=== PATIENT | female | born 1945 | race Caucasian/White ===

== ENCOUNTER 2019-08-27 17:57 | Inpatient (IN) | payer MEDICARE, BC ==
[2019-08-27] MEDS ORDERED: Sodium Chloride 0.9% 10 ML Syringe FLUSH PRN (18:21)
[2019-08-27] MEDS: Dextrose 5%-0.9% NaCl 1,000 ML IV SCH (19:50)
--- NOTE | 2019-08-27 19:53 | PCM.HP.2 ---
H&P History of Present Illness - General Date of Service: 08/27/19 Admit Problem/Dx: Admission Diagnosis/Problem Admission Diagnosis/Problem Diverticulitis Source of Information: Patient History Limitations: Reports: No Limitations - History of Present Illness Initial Comments - Free Text/Narative: Gisela is [id number] female who called yesterday stating she was having abdominal pain and having only minimal stool. She said she had an episode of abdominal pain several months ago and feels it happening again with recurrent diverticulitis. This was a self diagnosis. She took an enema last night with no relief in pain and no stool. She says she's lost over 10 pounds recently. When she eats she has increased pain. She also has a sense of bloating with pain mostly on the low left quadrant area. She stopped taking all medications. She had been on lisinopril as amlodipine. She is having trouble at with her who drinks alcohol. She feels that this lower. She has been a nurse in the past but retired. Duration of Symptoms: Reports: Day(s): - Related Data Allergies/Adverse Reactions: Allergies Allergy/AdvReac Type Severity Reaction Status Date / Time No Known Allergies Allergy Verified 03/07/16 09:23 Home Medications: Home Meds Aspirin [Low Dose Aspirin EC] 81 mg PO DAILY 02/19/13 [History] Citalopram Hydrobromide [Celexa] 20 mg PO DAILY 02/19/13 [History] amLODIPine [Norvasc] 5 mg PO DAILY 02/19/13 [History] lisinopriL [Prinivil] 40 mg PO DAILY 02/19/13 [History] Docusate Sodium 100 mg PO BID 03/03/16 [History] Doxycycline Hyclate 100 mg PO BID 03/03/16 [History] Past Medical History Cardiovascular History: Reports: Afib, Hypertension Respiratory History: Reports: Sleep Apnea Gastrointestinal History: Reports: Chronic Constipation, Chronic Diarrhea Genitourinary History: Reports: Urinary Incontinence [place] History: Reports: Dysfunctional Uterine Bleeding, Musculoskeletal History: Reports: Other (See Below) Other Musculoskeletal History: left knee pain Psychiatric History: Reports: Depression Endocrine/Metabolic History: Reports: Obesity/BMI 30+ Immunologic History: Reports: Immunosuppression, Other (See Below) Other Immunologic History: lymes diseases - Infectious Disease History Infectious Disease History: Reports: Chicken Pox, Measles, Mumps - Past Surgical History Cardiovascular Surgical History: Reports: Cardiac Ablation Endocrine Surgical History: Reports: None Social & Family History - Tobacco Use Smoking Status *Q: Never Smoker Second Hand Smoke Exposure: No - Caffeine Use Caffeine Use: Reports: Coffee - Recreational Drug Use Recreational Drug Use: No H&P Review of Systems - Review of Systems: Review Of Systems: See Below General: Reports: Weakness, Fatigue, Decreased Appetite, Weight Loss HEENT: Reports: No Symptoms Pulmonary: Reports: No Symptoms Cardiovascular: Reports: No Symptoms Gastrointestinal: Reports: Abdominal Pain, Distension, Nausea Genitourinary: Reports: No Symptoms Musculoskeletal: Reports: No Symptoms Skin: Reports: No Symptoms Psychiatric: Reports: Depression Neurological: Reports: No Symptoms Hematologic/Lymphatic: Reports: No Symptoms Immunologic: Reports: No Symptoms Exam - Exam Exam: See Below - Vital Signs Vital Signs: Last Vital Signs Temp 96.8 F L 08/27/19 19:14 Pulse 96 08/27/19 19:14 Resp 16 08/27/19 19:14 BP 155/51 H 08/27/19 19:14 Pulse Ox 96 08/27/19 19:14 Weight: 187 lb - Exam General: Alert, Oriented, Moderate Distress HEENT: PERRLA Neck: Supple, JVD, Other Lungs: Clear to Auscultation Cardiovascular: Regular Rate, Regular Rhythm GI/Abdominal Exam: Normal Bowel Sounds, Soft Back Exam: Normal Inspection Extremities: Normal Inspection Peripheral Pulses: 1+: Radial (L), Radial (R) Skin: Warm, Dry, Intact Neurological: Cranial Nerves Intact Neuro Extensive - Mental Status: Alert, Oriented x3 Neuro Extensive - Motor, Sensory, Reflexes: CN II-XII Intact, Normal Gait DTR: 1+: Bicep (L), Bicep (R) Psychiatric: Alert - Patient Data Lab Results Last 24 hrs: Laboratory Results - last 24 hr 08/27/19 08/27/19 Range/Units 18:27 18:27 WBC 10.6 (4.5-11.0) K/uL RBC 4.38 (3.30-5.50) M/uL Hgb 12.4 (12.0-15.0) g/dL Hct 38.0 (36.0-48.0) % MCV 87 (80-98) fL MCH 28 (27-31) pg MCHC 33 (32-36) % Plt Count 426 H (150-400) K/uL Neut % (Auto) 76 H (36-66) % Lymph % (Auto) 16 L (24-44) % [place] % (Auto) 7 H (2-6) % Eos % (Auto) 2 (2-4) % Baso % (Auto) 1 (0-1) % Sodium 138 L (140-148) mmol/L Potassium 3.8 (3.6-5.2) mmol/L Chloride 102 (100-108) mmol/L Carbon Dioxide 24 (21-32) mmol/L Anion Gap 15.8 H (5.0-14.0) mmol/L BUN 6 L D (7-18) mg/dL Creatinine 1.0 (0.6-1.0) mg/dL Est Cr Clr Drug Dosing 43.91 mL/min Estimated GFR (MDRD) 55 L (>60) Glucose 94 (74-106) mg/dL Calcium 8.7 (8.5-10.1) mg/dL Total Bilirubin 0.4 (0.2-1.0) mg/dL AST 11 L (15-37) U/L ALT 21 (12-78) U/L Alkaline Phosphatase 71 (46-116) U/L Total Protein 7.3 (6.4-8.2) g/dL Albumin 3.1 L (3.4-5.0) g/dL Globulin 4.2 H (2.3-3.5) g/dL Albumin/Globulin Ratio 0.7 L (1.2-2.2) Result Diagrams: 08/27/19 18:27 08/27/19 18:27 Sepsis Event Note - Focused Exam Vital Signs: Vital Signs Temp Pulse Resp BP Pulse Ox 08/27/19 19:14 96.8 F L 96 16 155/51 H 96 Date Exam was Performed: 08/27/19 Time Exam was Performed: 19:45 Problem List Initiated/Reviewed/Updated: Yes Orders Last 24hrs: Active Orders 24 hr Category Date Time Status Admission Status [Patient Status] [ADT] Routine ADT 08/27/19 18:20 Active Patient Status [ADT] Routine ADT 08/27/19 19:41 Ordered Height and Weight [RC] UPON Care 08/27/19 19:41 Ordered Intake and Output [RC] QSHIFT Care 08/27/19 19:43 Ordered Notify Provider Consults [RC] ASDIRECTED Care 08/27/19 18:23 Active Oxygen Therapy [RC] PRN Care 08/27/19 19:41 Ordered Peripheral IV Care [RC] . DIRECTED Care 08/27/19 18:21 Active Up ad Christine [RC] ASDIRECTED Care 08/27/19 19:41 Ordered VTE/DVT Education [RC] Per Unit Routine Care 08/27/19 19:41 Ordered Vital Signs [RC] Q4H Care 08/27/19 18:21 Active Vital Signs [RC] Q4H Care 08/27/19 19:41 Ordered Consult to Case Management/Food Safety Officer [CONS] Cons 08/27/19 18:29 Active Routine Consult to Physician [CONS] Routine Cons 08/27/19 18:22 Ordered Clear Liquid Diet [DIET] Diet 08/28/19 Breakfast Active UA W/MICROSCOPIC [URIN] Routine Lab 08/27/19 18:27 Ordered Aztreonam [Azactam] 1 gm Med 08/27/19 22:00 Pending Sodium Chloride 0.9% [Normal Saline] 50 ml IV Q8H Dextrose 5%-0.9% NaCl [Dextrose 5%-Normal Saline] 1,000 Med 08/27/19 18:30 Active ml IV ASDIRECTED Meropenem [Merrem] 500 mg Med 08/27/19 20:00 Active Sodium Chloride 0.9% [Normal Saline] 50 ml IV ONETIME Meropenem [Merrem] 500 mg Med 08/27/19 20:00 Pending Sodium Chloride 0.9% [Normal Saline] 50 ml IV Q6H Sodium Chloride 0.9% [Saline Flush] Med 08/27/19 18:21 Active 10 ml FLUSH ASDIRECTED PRN Peripheral IV Insertion Adult [OM.PC] Routine Oth 08/27/19 18:21 Ordered SCD [Sequential Compression Device] [OM.PC] Routine Oth 08/27/19 18:21 Ordered Resuscitation Status Routine Resus Stat 08/27/19 19:41 Ordered Medication Orders Aztreonam 1 gm/ Sodium (Chloride) 50 mls @ 100 mls/hr IV Q8H [facility] Dextrose/Sodium Chloride (Dextrose 5%-Normal Saline) 1,000 mls @ 100 mls/hr IV ASDIRECTED [facility] Meropenem 500 mg/ Sodium (Chloride) 50 mls @ 100 mls/hr IV Q8H [facility] Meropenem 500 mg/ Sodium (Chloride) 50 mls @ 100 mls/hr IV ONETIME ONE Stop: 08/27/19 20:29 Sodium Chloride (Saline Flush) 10 ml FLUSH ASDIRECTED PRN PRN Reason: Keep Vein Open Assessment/Plan Comment:: Assessment/ Plan: #1. Diverticulitis. A CT of the abdomen was done after a KUB. The report of the CT showed sigmoid diverticulitis with small free fluid throughout without discrete abscess. I admitted her to the hospital and will start antibiotics. I also conferred and consulted Dr. Charles Fairbanks who will see her tomorrow. Other laboratory analysis ading. #2. Hypertension: She does have a history of hypertension. I will restart medication if her pressure is elevated. - Mortality Measure Prognosis:: Good
[2019-08-27] MEDS ORDERED: Meropenem 500 MG in Sodium Chloride 0.9% 50 ML IV ONE (20:00)
[2019-08-28] MEDS: Meropenem 500 MG in Sodium Chloride 0.9% 50 ML IV SCH ×3 (04:04→19:37)
[2019-08-28] MEDS: Dextrose 5%-0.9% NaCl 1,000 ML IV SCH ×2 (07:40→19:37)
--- NOTE | 2019-08-28 08:30 | CONS ---
DATE OF SERVICE: 08/28/2019 REFERRING PHYSICIAN: CONSULTING PHYSICIAN: Harika Moreno PA-C HISTORY OF PRESENT ILLNESS: Gisela was asked to be seen by Wander Maddox MD, for consultation regarding Gisela, who is a 74-year-old female who was admitted yesterday for recurrent diverticulitis. Gisela states that she has been having abdominal pain and very minimal stool for about 3 years, it got worse the last couple of weeks. She states that she took an enema the evening before discharge with no relief. She has been having small marble- like stools, and it is associated with pain in the left lower quadrant and bloating. Weight loss recently of about 10 pounds, but she states that was due to the keto diet. Appetite has been good. No nausea, vomiting. No radiation of pain. Last episode of recurrent diverticulitis several months ago, where it got to be this severe. ALLERGIES: NO KNOWN ALLERGIES. HOME MEDICATIONS: See EMR. PAST MEDICAL HISTORY: Cardiovascular: Atrial fibrillation, hypertension. Respiratory: Sleep apnea. GI: Has had chronic constipation, chronic diarrhea, and hemorrhoids have reoccurred after surgery 3 years ago. : Has urinary incontinence. OBSTETRICS NURSE: Postmenopausal. Musculoskeletal: Left knee pain, history of Lyme's disease, so has varying joint and muscle pain. Psychiatric: History of depression. Endocrine: Metabolic history, BMI 32. PAST SURGICAL HISTORY: Hemorrhoid surgery 3 years ago, PPH surgery, and cardiac ablation. 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 Drinks caffeine, coffee. Alcohol, none. Recreational drugs, none. REVIEW OF SYSTEMS: CONSTITUTIONAL: Denies any fever, chills, night sweats. Has had weakness, fatigue, some decreased appetite, and weight loss associated with keto diet. HEENT: Negative. CHEST: No chest pain, shortness of breath, fast or irregular heartbeat. LUNGS: No cough. GI: As above. : No UTI signs and symptoms. MUSCULOSKELETAL: Chronic knee pain. SKIN: No rash. PSYCHIATRIC: Reports depression, increased stress with drinking. NEUROLOGIC: Negative for headache, dizziness, loss of coordination. Remainder of review of systems negative for any pertinent positives and negatives. OBJECTIVE: GENERAL: Gisela Chung is a 74-year-old female. VITAL SIGNS: Height is 5 feet 4 inches, weight is 187 pounds, BMI is 32.1, TPR at 0729 of 98.4, 60, 20, blood pressure 145/56. HEENT: Negative. NECK: Supple. HEART: Regular rate and rhythm. LUNGS: Clear. ABDOMEN: Soft. Minimal tenderness in the left lower quadrant. NEUROLOGIC: Cranial nerves II through XII intact. SKIN: Without rash. EXTREMITIES: No peripheral edema. Full range of motion. PSYCHIATRIC: Quite angry right now. The patient states needed to "vent." ASSESSMENT: 1. Diverticulitis. 2. Hypertension. PLAN: 1. Rx Colace 100 mg b.i.d. p.o. 2. Dulcolax tablets 10 mg b.i.d. orally, scheduled to stop when the patient has bowel movement. Continue IV antibiotics. 3. Protonix 40 mg IV q.24 hours. 4. Clear liquid diet. 5. Refer concerns to Wander Maddox MD, her primary care provider. 6. We will evaluate p.r.n. or in a.m. Thank you for this consult. Harika Moreno PA-C /[id number] MTDD
[2019-08-28] MEDS: Docusate Sodium 100 MG Cap PO SCH ×3 (09:24→22:02)
[2019-08-28] MEDS: Bisacodyl 5 MG Tab PO SCH ×3 (09:24→22:02)
--- NOTE | 2019-08-28 13:25 | PCM.PN ---
- General Info Date of Service: 08/28/19 Subjective Update: She continues to have abd. pain with minimal improvement. She still has abd. pain. Functional Status: Reports: Pain Controlled - Review of Systems General: Reports: Weakness HEENT: Reports: No Symptoms Pulmonary: Reports: No Symptoms Cardiovascular: Reports: No Symptoms Gastrointestinal: Reports: Abdominal Pain, Decreased Appetite Genitourinary: Reports: No Symptoms Musculoskeletal: Reports: No Symptoms Skin: Reports: No Symptoms Neurological: Reports: No Symptoms Psychiatric: Reports: No Symptoms - Patient Data Vitals - Most Recent: Last Vital Signs Temp 98.5 F 08/28/19 10:38 Pulse 72 08/28/19 10:38 Resp 16 08/28/19 10:38 BP 112/61 08/28/19 10:38 Pulse Ox 97 08/28/19 10:38 Weight - Most Recent: 187 lb I&O - Last 24 Hours: Intake & Output 08/27/19 08/28/19 08/28/19 22:59 06:59 14:59 Intake Total 500 500 50 Output Total 300 400 Balance 200 100 50 Lab Results Last 24 Hours: Laboratory Results - last 24 hr 08/27/19 08/27/19 08/27/19 Range/Units 18:27 18:27 21:57 WBC 10.6 (4.5-11.0) K/uL RBC 4.38 (3.30-5.50) M/uL Hgb 12.4 (12.0-15.0) g/dL Hct 38.0 (36.0-48.0) % MCV 87 (80-98) fL MCH 28 (27-31) pg MCHC 33 (32-36) % Plt Count 426 H (150-400) K/uL Neut % (Auto) 76 H (36-66) % Lymph % (Auto) 16 L (24-44) % [place] % (Auto) 7 H (2-6) % Eos % (Auto) 2 (2-4) % Baso % (Auto) 1 (0-1) % Sodium 138 L (140-148) mmol/L Potassium 3.8 (3.6-5.2) mmol/L Chloride 102 (100-108) mmol/L Carbon Dioxide 24 (21-32) mmol/L Anion Gap 15.8 H (5.0-14.0) mmol/L BUN 6 L D (7-18) mg/dL Creatinine 1.0 (0.6-1.0) mg/dL Est Cr Clr Drug Dosing 43.91 mL/min Estimated GFR (MDRD) 55 L (>60) Glucose 94 (74-106) mg/dL Calcium 8.7 (8.5-10.1) mg/dL Total Bilirubin 0.4 (0.2-1.0) mg/dL AST 11 L (15-37) U/L ALT 21 (12-78) U/L Alkaline Phosphatase 71 (46-116) U/L Total Protein 7.3 (6.4-8.2) g/dL Albumin 3.1 L (3.4-5.0) g/dL Globulin 4.2 H (2.3-3.5) g/dL Albumin/Globulin Ratio 0.7 L (1.2-2.2) Urine Color Yellow (YELLOW) Urine Appearance Clear (CLEAR) Urine pH 6.5 (5.0-8.0) Ur Specific [place] 1.015 (1.008-1.030) Urine Protein Negative (NEGATIVE) mg/dL Urine Glucose (UA) Negative (NEGATIVE) mg/dL Urine Ketones Trace H (NEGATIVE) mg/dL Urine Occult Blood Trace-intact H (NEGATIVE) Urine Nitrite Negative (NEGATIVE) Urine Bilirubin Negative (NEGATIVE) Urine Urobilinogen 0.2 (0.2-1.0) EU/dL Ur Leukocyte Esterase Negative (NEGATIVE) Urine RBC 0-5 (0-5) Urine WBC 0-5 (0-5) Ur Epithelial Cells Rare Amorphous Sediment Not seen Urine Bacteria Few Urine Mucus Not seen Med Orders - Current: Current Medications Bisacodyl (Dulcolax) 10 mg PO BID [facility] Last Admin: 08/28/19 09:24 Dose: 10 mg Docusate Sodium (Colace) 100 mg PO BID [facility] Last Admin: 08/28/19 09:24 Dose: 100 mg Aztreonam 1 gm/ Sodium (Chloride) 50 mls @ 100 mls/hr IV Q8H [facility] Last Admin: 08/28/19 05:15 Dose: 100 mls/hr Dextrose/Sodium Chloride (Dextrose 5%-Normal Saline) 1,000 mls @ 100 mls/hr IV ASDIRECTED [facility] Last Admin: 08/28/19 07:40 Dose: 100 mls/hr Meropenem 500 mg/ Sodium (Chloride) 50 mls @ 100 mls/hr IV Q8H [facility] Last Admin: 08/28/19 12:59 Dose: 100 mls/hr Pantoprazole Sodium (Protonix Iv) 40 mg IVPUSH BEDTIME [facility] Sodium Chloride (Saline Flush) 10 ml FLUSH ASDIRECTED PRN PRN Reason: Keep Vein Open Discontinued Medications Meropenem 500 mg/ Sodium (Chloride) 50 mls @ 100 mls/hr IV ONETIME ONE Stop: 08/27/19 20:29 Last Admin: 08/27/19 19:51 Dose: 100 mls/hr - Exam General: Alert, Oriented HEENT: Pupils Equal, Pupils Reactive, EOMI, Mucous Membr. Moist/[place] Neck: Supple Lungs: Clear to Auscultation, Normal Respiratory Effort Cardiovascular: Regular Rate, Regular Rhythm GI/Abdominal Exam: Tender, Abnormal Bowel Sounds Extremities: Normal Inspection, Normal Range of Motion, Non-Tender, No Pedal Edema, Normal Capillary Refill Peripheral Pulses: 1+: Radial (L), Radial (R) Skin: Warm, Dry, Intact Sepsis Event Note - Evaluation Sepsis Screening Result: No Definite Risk - Focused Exam Vital Signs: Vital Signs Temp Pulse Resp BP Pulse Ox 08/28/19 10:38 98.5 F 72 16 112/61 97 08/28/19 07:29 98.4 F 60 20 145/56 H 97 08/28/19 03:00 16 Date Exam was Performed: 08/28/19 Time Exam was Performed: 13:21 - Problem List Review Problem List Initiated/Reviewed/Updated: Yes - My Orders Last 24 Hours: My Active Orders 08/27/19 18:20 Admission Status [Patient Status] [ADT] Routine 08/27/19 18:21 Peripheral IV Care [RC] Q12H Vital Signs [RC] Q4H Sodium Chloride 0.9% [Saline Flush] 10 ml FLUSH ASDIRECTED PRN Peripheral IV Insertion Adult [OM.PC] Routine SCD [Sequential Compression Device] [OM.PC] Routine 08/27/19 18:22 Consult to Physician [CONS] Routine 08/27/19 18:23 Notify Provider Consults [RC] ASDIRECTED 08/27/19 18:29 Consult to Case Management/Hepatology Physician [CONS] Routine 08/27/19 18:30 Dextrose 5%-0.9% NaCl [Dextrose 5%-Normal Saline] 1,000 ml IV ASDIRECTED 08/27/19 19:41 Patient Status [ADT] Routine Oxygen Therapy [RC] PRN Up ad Christine [RC] ASDIRECTED VTE/DVT Education [RC] Per Unit Routine Resuscitation Status Routine 08/27/19 19:43 Intake and Output [RC] QSHIFT 08/27/19 22:00 Aztreonam [Azactam] 1 gm Sodium Chloride 0.9% [Normal Saline] 50 ml IV Q8H 08/28/19 04:00 Meropenem [Merrem] 500 mg Sodium Chloride 0.9% [Normal Saline] 50 ml IV Q8H 08/28/19 Breakfast Clear Liquid Diet [DIET] NPO After Midnight [Nothing per Oral After Midnight Diet] [DIET] - Plan Plan:: Assessment/ Plan: #1. Diverticulitis. A CT of the abdomen was done after a KUB. The report of the CT showed sigmoid diverticulitis with small free fluid throughout without discrete abscess. She is feeling better today still no appetite. She is tolerating clear liquids. #2. Hypertension: She does have a history of hypertension. Good control presently.
[2019-08-28] MEDS ORDERED: Pantoprazole 40 MG Vial IVPUSH SCH (21:00)
[2019-08-29] MEDS: Meropenem 500 MG in Sodium Chloride 0.9% 50 ML IV SCH ×3 (04:07→20:06)
[2019-08-29] MEDS: Dextrose 5%-0.9% NaCl 1,000 ML IV SCH ×2 (07:58→20:10)
--- NOTE | 2019-08-29 09:00 | PCM.PN ---
- General Info Date of Service: 08/29/19 Subjective Update: She says she is feeling a little better today but still has pain in the abd. Functional Status: Reports: Pain Controlled - Review of Systems General: Reports: No Symptoms HEENT: Reports: No Symptoms Pulmonary: Reports: No Symptoms Cardiovascular: Reports: No Symptoms Gastrointestinal: Reports: Abdominal Pain, Decreased Appetite Genitourinary: Reports: No Symptoms Musculoskeletal: Reports: No Symptoms Skin: Reports: No Symptoms Neurological: Reports: No Symptoms - Patient Data Vitals - Most Recent: Last Vital Signs Temp 98.1 F 08/29/19 08:00 Pulse 47 L 08/29/19 08:00 Resp 16 08/29/19 08:00 BP 129/43 L 08/29/19 08:00 Pulse Ox 98 08/29/19 08:00 Weight - Most Recent: 187 lb I&O - Last 24 Hours: Intake & Output 08/28/19 08/29/19 08/29/19 22:59 06:59 14:59 Intake Total 1000 2955 Balance 1000 2955 Lab Results Last 24 Hours: Laboratory Results - last 24 hr 08/29/19 08/29/19 Range/Units 07:31 07:31 WBC 4.6 (4.5-11.0) K/uL RBC 3.98 (3.30-5.50) M/uL Hgb 11.1 L (12.0-15.0) g/dL Hct 35.1 L (36.0-48.0) % MCV 88 (80-98) fL MCH 28 (27-31) pg MCHC 32 (32-36) % Plt Count 439 H (150-400) K/uL Sodium 143 (140-148) mmol/L Potassium 3.8 (3.6-5.2) mmol/L Chloride 110 H (100-108) mmol/L Carbon Dioxide 23 (21-32) mmol/L Anion Gap 13.8 (5.0-14.0) mmol/L BUN 3 L (7-18) mg/dL Creatinine 0.9 (0.6-1.0) mg/dL Est Cr Clr Drug Dosing 48.79 mL/min Estimated GFR (MDRD) > 60 (>60) Glucose 105 (74-106) mg/dL Calcium 8.2 L (8.5-10.1) mg/dL Phosphorus 2.9 (2.5-4.9) mg/dL Magnesium 2.2 (1.8-2.4) mg/dL Total Bilirubin 0.2 (0.2-1.0) mg/dL AST 12 L (15-37) U/L ALT 18 (12-78) U/L Alkaline Phosphatase 58 (46-116) U/L Total Protein 6.3 L (6.4-8.2) g/dL Albumin 2.5 L (3.4-5.0) g/dL Globulin 3.8 H (2.3-3.5) g/dL Albumin/Globulin Ratio 0.7 L (1.2-2.2) Med Orders - Current: Current Medications Amlodipine Besylate (Norvasc) 5 mg PO DAILY [facility] Aspirin (Halfprin) 81 mg PO DAILY [facility] Citalopram Hydrobromide (Celexa) 20 mg PO DAILY [facility] Docusate Sodium (Colace) 100 mg PO BID [facility] Last Admin: 08/28/19 22:02 Dose: 100 mg Aztreonam 1 gm/ Sodium (Chloride) 50 mls @ 100 mls/hr IV Q8H [facility] Last Admin: 08/29/19 06:28 Dose: 100 mls/hr Dextrose/Sodium Chloride (Dextrose 5%-Normal Saline) 1,000 mls @ 100 mls/hr IV ASDIRECTED [facility] Last Admin: 08/29/19 07:58 Dose: 100 mls/hr Meropenem 500 mg/ Sodium (Chloride) 50 mls @ 100 mls/hr IV Q8H [facility] Last Admin: 08/29/19 04:07 Dose: 100 mls/hr Lisinopril (Prinivil) 40 mg PO DAILY [facility] Pantoprazole Sodium (Protonix) 40 mg PO BEDTIME [facility] Sodium Chloride (Saline Flush) 10 ml FLUSH ASDIRECTED PRN PRN Reason: Keep Vein Open Discontinued Medications Bisacodyl (Dulcolax) 10 mg PO BID [facility] Last Admin: 08/28/19 22:02 Dose: 10 mg Meropenem 500 mg/ Sodium (Chloride) 50 mls @ 100 mls/hr IV ONETIME ONE Stop: 08/27/19 20:29 Last Admin: 08/27/19 19:51 Dose: 100 mls/hr Pantoprazole Sodium (Protonix Iv) 40 mg IVPUSH BEDTIME [facility] Last Admin: 08/28/19 21:47 Dose: 40 mg - Exam General: Alert, Oriented HEENT: Pupils Equal, Pupils Reactive, EOMI, Mucous Membr. Moist/[place] Neck: Supple Lungs: Clear to Auscultation, Normal Respiratory Effort Cardiovascular: Regular Rate, Regular Rhythm GI/Abdominal Exam: Tender (Pain left lower quad.) Back Exam: Vertebral Tenderness Extremities: Normal Inspection Sepsis Event Note - Evaluation Sepsis Screening Result: No Definite Risk - Focused Exam Vital Signs: Vital Signs Temp Pulse Resp BP BP Pulse Ox 08/29/19 08:00 98.1 F 47 L 16 129/43 L 98 08/29/19 04:09 97.8 F 53 L 16 118/44 L 96 08/28/19 23:55 98.8 F 60 18 144/57 H 98 Date Exam was Performed: 08/29/19 Time Exam was Performed: 09:04 - Problem List Review Problem List Initiated/Reviewed/Updated: Yes - Plan Plan:: Assessment/ Plan: #1. Diverticulitis. A CT of the abdomen was done after a KUB. The report of the CT showed sigmoid diverticulitis with small free fluid throughout without discrete abscess. Minimal improvement today verses yesterday. She will be on a soft diet today. CBC is normal. #2. Hypertension: She does have a history of hypertension. Good control presently even though she is not taking meds for BP.
[2019-08-29] MEDS: Citalopram 20 MG Tab PO SCH (09:18)
[2019-08-29] MEDS: Docusate Sodium 100 MG Cap PO SCH ×2 (09:18→21:12)
[2019-08-29] MEDS: Aspirin 81 MG Tab.EC PO SCH (09:18)
[2019-08-29] MEDS: amLODIPine 5 MG Tab PO SCH (09:19)
[2019-08-29] MEDS: Lisinopril 20 MG Tab PO SCH (09:19)
--- NOTE | 2019-08-29 09:34 | PN ---
DATE OF SERVICE: 08/29/2019 SUBJECTIVE: Gisela has had several loose stools. Been afebrile. Denies abdominal pain, but states feels funny. Has been up ambulating, tolerating sips of clear liquid without any difficulty. Oral intake 1200 and urine output 700 and a total of 8 stools. REVIEW OF SYSTEMS: CONSTITUTIONAL: No fever, chills, night sweats, or fatigue. NECK: Negative. HEART AND LUNGS: Negative. ABDOMEN: As above. EXTREMITIES: Negative. SKIN: Negative. PSYCHIATRIC: Negative. NEUROLOGIC: Negative. All systems negative for any other pertinent positives and negatives. OBJECTIVE: GENERAL: Gisela Chung is a 74-year-old female, alert, orientated, moves around while in her room. VITAL SIGNS: TPR is 97.8, 53, 16. Blood pressure 118/44. HEENT: Negative. NECK: Supple. HEART AND LUNGS: Negative. ABDOMEN: Remains to be minimally tender in the left lower quadrant, examination by Vince Fairbanks M.D. EXTREMITIES: Negative. ASSESSMENT: Diverticulitis. PLAN: 1. Check CBC, CMP, mag, phos now. 2. Full liquid diet. 3. Discontinue Dulcolax tablets. Restart home medications of Norvasc 5 mg p.o. daily, aspirin 81 mg p.o. daily, citalopram (Celexa) 20 mg daily, and lisinopril 40 mg p.o. daily. Continue same antibiotics. 4. We will check labs, CBC, CMP, and phos in a.m. 5. We will evaluate p.r.n. or in a.m. Harika Moreno PA-C /[id number]
[2019-08-29] MEDS: Pantoprazole 40 MG Tab.CR PO SCH (21:12)
[2019-08-30] MEDS: Meropenem 500 MG in Sodium Chloride 0.9% 50 ML IV SCH ×3 (04:44→19:51)
[2019-08-30] MEDS: Dextrose 5%-0.9% NaCl 1,000 ML IV SCH (08:25)
[2019-08-30] MEDS: Citalopram 20 MG Tab PO SCH (08:33)
[2019-08-30] MEDS: Docusate Sodium 100 MG Cap PO SCH (08:33)
[2019-08-30] MEDS: Aspirin 81 MG Tab.EC PO SCH (08:33)
[2019-08-30] MEDS: amLODIPine 5 MG Tab PO SCH (08:33)
[2019-08-30] MEDS: Lisinopril 20 MG Tab PO SCH (08:34)
--- NOTE | 2019-08-30 08:43 | PCM.PN ---
- General Info Date of Service: 08/30/19 Subjective Update: Almost no pain at the present time. The pain in the lower left is resolved. Functional Status: Reports: Pain Controlled - Review of Systems General: Reports: No Symptoms HEENT: Reports: No Symptoms Pulmonary: Reports: No Symptoms Cardiovascular: Reports: No Symptoms Gastrointestinal: Reports: No Symptoms Genitourinary: Reports: No Symptoms Musculoskeletal: Reports: No Symptoms Skin: Reports: No Symptoms Neurological: Reports: No Symptoms Psychiatric: Reports: No Symptoms - Patient Data Vitals - Most Recent: Last Vital Signs Temp 98.2 F 08/30/19 07:47 Pulse 63 08/30/19 07:47 Resp 16 08/30/19 07:47 BP 188/66 H 08/30/19 07:47 Pulse Ox 96 08/30/19 07:47 Weight - Most Recent: 187 lb I&O - Last 24 Hours: Intake & Output 08/29/19 08/30/19 08/30/19 22:59 06:59 14:59 Intake Total 1571 1225 Balance 1571 1225 Lab Results Last 24 Hours: Laboratory Results - last 24 hr 08/30/19 08/30/19 Range/Units 04:59 04:59 WBC 4.1 L (4.5-11.0) K/uL RBC 3.70 (3.30-5.50) M/uL Hgb 10.5 L (12.0-15.0) g/dL Hct 32.9 L (36.0-48.0) % MCV 89 (80-98) fL MCH 28 (27-31) pg MCHC 32 (32-36) % Plt Count 399 (150-400) K/uL Sodium 144 (140-148) mmol/L Potassium 3.8 (3.6-5.2) mmol/L Chloride 111 H (100-108) mmol/L Carbon Dioxide 24 (21-32) mmol/L Anion Gap 12.8 (5.0-14.0) mmol/L BUN 3 L (7-18) mg/dL Creatinine 0.9 (0.6-1.0) mg/dL Est Cr Clr Drug Dosing 48.79 mL/min Estimated GFR (MDRD) > 60 (>60) Glucose 98 (74-106) mg/dL Calcium 8.1 L (8.5-10.1) mg/dL Phosphorus 3.3 (2.5-4.9) mg/dL Total Bilirubin 0.2 (0.2-1.0) mg/dL AST 9 L (15-37) U/L ALT 16 (12-78) U/L Alkaline Phosphatase 50 (46-116) U/L Total Protein 5.6 L (6.4-8.2) g/dL Albumin 2.2 L (3.4-5.0) g/dL Globulin 3.4 (2.3-3.5) g/dL Albumin/Globulin Ratio 0.7 L (1.2-2.2) Med Orders - Current: Current Medications Amlodipine Besylate (Norvasc) 5 mg PO DAILY [facility] Last Admin: 08/30/19 08:33 Dose: Not Given Aspirin (Halfprin) 81 mg PO DAILY [facility] Last Admin: 08/30/19 08:33 Dose: Not Given Citalopram Hydrobromide (Celexa) 20 mg PO DAILY [facility] Last Admin: 08/30/19 08:33 Dose: Not Given Docusate Sodium (Colace) 100 mg PO BID PRN PRN Reason: BM Aztreonam 1 gm/ Sodium (Chloride) 50 mls @ 100 mls/hr IV Q8H [facility] Last Admin: 08/30/19 06:29 Dose: 100 mls/hr Meropenem 500 mg/ Sodium (Chloride) 50 mls @ 100 mls/hr IV Q8H [facility] Last Admin: 08/30/19 04:44 Dose: 100 mls/hr Dextrose/Sodium Chloride (Dextrose 5%-Normal Saline) 1,000 mls @ 50 mls/hr IV ASDIRECTED [facility] Lisinopril (Prinivil) 40 mg PO DAILY [facility] Last Admin: 08/30/19 08:34 Dose: Not Given Metoprolol Succinate (Toprol Xl) 25 mg PO DAILY [facility] Pantoprazole Sodium (Protonix) 40 mg PO BEDTIME [facility] Last Admin: 08/29/19 21:12 Dose: 40 mg Sodium Chloride (Saline Flush) 10 ml FLUSH ASDIRECTED PRN PRN Reason: Keep Vein Open Discontinued Medications Bisacodyl (Dulcolax) 10 mg PO BID [facility] Last Admin: 08/28/19 22:02 Dose: 10 mg Docusate Sodium (Colace) 100 mg PO BID [facility] Last Admin: 08/30/19 08:33 Dose: Not Given Dextrose/Sodium Chloride (Dextrose 5%-Normal Saline) 1,000 mls @ 100 mls/hr IV ASDIRECTED [facility] Last Admin: 08/30/19 08:25 Dose: 100 mls/hr Meropenem 500 mg/ Sodium (Chloride) 50 mls @ 100 mls/hr IV ONETIME ONE Stop: 08/27/19 20:29 Last Admin: 08/27/19 19:51 Dose: 100 mls/hr Pantoprazole Sodium (Protonix Iv) 40 mg IVPUSH BEDTIME [facility] Last Admin: 08/28/19 21:47 Dose: 40 mg - Exam General: Alert HEENT: Pupils Equal, Pupils Reactive, EOMI, Mucous Membr. Moist/[place] Neck: Supple Lungs: Clear to Auscultation, Normal Respiratory Effort Cardiovascular: Regular Rate, Regular Rhythm GI/Abdominal Exam: Normal Bowel Sounds, Soft, Non-Tender, No Organomegaly, No Distention, No Abnormal Bruit, No Mass, Pelvis Stable Peripheral Pulses: 1+: Radial (L), Radial (R) Sepsis Event Note - Evaluation Sepsis Screening Result: No Definite Risk - Focused Exam Vital Signs: Vital Signs Temp Pulse Resp BP Pulse Ox 08/30/19 07:47 98.2 F 63 16 188/66 H 96 08/29/19 22:15 97.5 F 61 18 162/61 H 98 Date Exam was Performed: 08/30/19 Time Exam was Performed: 08:39 - Problem List Review Problem List Initiated/Reviewed/Updated: Yes - My Orders Last 24 Hours: My Active Orders 08/30/19 08:45 Dextrose 5%-0.9% NaCl [Dextrose 5%-Normal Saline] 1,000 ml IV ASDIRECTED 08/30/19 09:00 Metoprolol Succinate [Toprol XL] 25 mg PO DAILY 08/31/19 05:11 BASIC METABOLIC PANEL,BMP [CHEM] Routine CBC WITH AUTO DIFF [HEME] Routine - Plan Plan:: Assessment/ Plan: #1. Diverticulitis. A CT of the abdomen was done after a KUB. The report of the CT showed sigmoid diverticulitis with small free fluid throughout without discrete abscess. Stable presently. On a reg. diet today as directed by Dr. Fairbanks. #2. Hypertension: She does have a history of hypertension. Will start Metoprolol today.
[2019-08-30] MEDS ORDERED: Dextrose 5%-0.9% NaCl 1,000 ML IV SCH (08:45)
[2019-08-30] MEDS ORDERED: Docusate Sodium 100 MG Cap PO PRN (09:00)
[2019-08-30] MEDS: Metoprolol Succinate 25 MG Tab.ER PO SCH (09:56)
[2019-08-30] MEDS: Pantoprazole 40 MG Tab.CR PO SCH (20:01)
[2019-08-30] MEDS ORDERED: Furosemide 20 MG Tab PO ONE (23:29)
[2019-08-31] MEDS ORDERED: Acetaminophen 325 MG Tab PO ONE (00:18)
[2019-08-31] MEDS: Meropenem 500 MG in Sodium Chloride 0.9% 50 ML IV SCH (04:17)
--- NOTE | 2019-08-31 07:46 | PCM.PN ---
- General Info Date of Service: 08/31/19 Functional Status: Reports: Pain Controlled - Review of Systems General: Reports: No Symptoms HEENT: Reports: No Symptoms Pulmonary: Reports: No Symptoms Cardiovascular: Reports: No Symptoms Gastrointestinal: Reports: Decreased Appetite Genitourinary: Reports: No Symptoms Musculoskeletal: Reports: No Symptoms Skin: Reports: No Symptoms Neurological: Reports: No Symptoms Psychiatric: Reports: No Symptoms - Patient Data Vitals - Most Recent: Last Vital Signs Temp 98.5 F 08/31/19 02:45 Pulse 58 L 08/31/19 02:45 Resp 16 08/31/19 02:45 BP 142/62 H 08/31/19 02:45 Pulse Ox 96 08/31/19 02:45 Weight - Most Recent: 187 lb I&O - Last 24 Hours: Intake & Output 08/30/19 08/31/19 08/31/19 22:59 06:59 14:59 Intake Total 1345 1345 Balance 1345 1345 Lab Results Last 24 Hours: Laboratory Results - last 24 hr 08/31/19 08/31/19 Range/Units 04:00 04:00 WBC 5.1 (4.5-11.0) K/uL RBC 3.77 (3.30-5.50) M/uL Hgb 11.0 L (12.0-15.0) g/dL Hct 33.2 L (36.0-48.0) % MCV 88 (80-98) fL MCH 29 (27-31) pg MCHC 33 (32-36) % Plt Count 428 H (150-400) K/uL Neut % (Auto) 50 (36-66) % Lymph % (Auto) 37 (24-44) % [place] % (Auto) 7 H (2-6) % Eos % (Auto) 5 H (2-4) % Baso % (Auto) 1 (0-1) % Sodium 145 (140-148) mmol/L Potassium 3.9 (3.6-5.2) mmol/L Chloride 111 H (100-108) mmol/L Carbon Dioxide 27 (21-32) mmol/L Anion Gap 10.9 (5.0-14.0) mmol/L BUN 6 L D (7-18) mg/dL Creatinine 0.9 (0.6-1.0) mg/dL Est Cr Clr Drug Dosing 48.79 mL/min Estimated GFR (MDRD) > 60 (>60) Glucose 97 (74-106) mg/dL Calcium 8.5 (8.5-10.1) mg/dL Med Orders - Current: Current Medications Amlodipine Besylate (Norvasc) 5 mg PO DAILY [facility] Last Admin: 08/30/19 08:33 Dose: Not Given Aspirin (Halfprin) 81 mg PO DAILY [facility] Last Admin: 08/30/19 08:33 Dose: Not Given Citalopram Hydrobromide (Celexa) 20 mg PO DAILY [facility] Last Admin: 08/30/19 08:33 Dose: Not Given Docusate Sodium (Colace) 100 mg PO BID PRN PRN Reason: BM Aztreonam 1 gm/ Sodium (Chloride) 50 mls @ 100 mls/hr IV Q8H [facility] Last Admin: 08/31/19 05:30 Dose: 100 mls/hr Meropenem 500 mg/ Sodium (Chloride) 50 mls @ 100 mls/hr IV Q8H [facility] Last Admin: 08/31/19 04:17 Dose: 100 mls/hr Dextrose/Sodium Chloride (Dextrose 5%-Normal Saline) 1,000 mls @ 50 mls/hr IV ASDIRECTED [facility] Last Admin: 08/30/19 20:13 Dose: 50 mls/hr Lisinopril (Prinivil) 40 mg PO DAILY [facility] Last Admin: 08/30/19 08:34 Dose: Not Given Metoprolol Succinate (Toprol Xl) 25 mg PO DAILY [facility] Last Admin: 08/30/19 09:56 Dose: 25 mg Pantoprazole Sodium (Protonix) 40 mg PO BEDTIME [facility] Last Admin: 08/30/19 20:01 Dose: 40 mg Sodium Chloride (Saline Flush) 10 ml FLUSH ASDIRECTED PRN PRN Reason: Keep Vein Open Discontinued Medications Acetaminophen (Tylenol) 650 mg PO NOW ONE Stop: 08/31/19 00:19 Last Admin: 08/31/19 00:38 Dose: 650 mg Bisacodyl (Dulcolax) 10 mg PO BID [facility] Last Admin: 08/28/19 22:02 Dose: 10 mg Docusate Sodium (Colace) 100 mg PO BID [facility] Last Admin: 08/30/19 08:33 Dose: Not Given Furosemide (Lasix) 20 mg PO ONETIME ONE Stop: 08/30/19 23:30 Last Admin: 08/31/19 00:15 Dose: 20 mg Dextrose/Sodium Chloride (Dextrose 5%-Normal Saline) 1,000 mls @ 100 mls/hr IV ASDIRECTED [facility] Last Admin: 08/30/19 08:25 Dose: 100 mls/hr Meropenem 500 mg/ Sodium (Chloride) 50 mls @ 100 mls/hr IV ONETIME ONE Stop: 08/27/19 20:29 Last Admin: 08/27/19 19:51 Dose: 100 mls/hr Pantoprazole Sodium (Protonix Iv) 40 mg IVPUSH BEDTIME [facility] Last Admin: 08/28/19 21:47 Dose: 40 mg - Exam General: Alert, Oriented HEENT: Pupils Equal, Pupils Reactive, EOMI, Mucous Membr. Moist/[place] Neck: Supple Lungs: Clear to Auscultation, Normal Respiratory Effort Cardiovascular: Regular Rate, Regular Rhythm GI/Abdominal Exam: Tender Back Exam: Normal Inspection, Full Range of Motion Peripheral Pulses: 1+: Radial (L), Radial (R) Skin: Warm, Dry, Intact Neurological: No New Focal Deficit Psy/Mental Status: Alert, Normal Affect, Normal Mood Sepsis Event Note - Evaluation Sepsis Screening Result: No Definite Risk - Focused Exam Vital Signs: Vital Signs Temp Pulse Resp BP BP Pulse Ox 08/31/19 02:45 98.5 F 58 L 16 142/62 H 96 08/30/19 22:42 65 16 158/78 H 97 08/30/19 20:00 98 F 66 16 180/70 H 98 Date Exam was Performed: 08/31/19 Time Exam was Performed: 07:40 - Problem List Review Problem List Initiated/Reviewed/Updated: Yes - My Orders Last 24 Hours: My Active Orders 08/30/19 08:45 Dextrose 5%-0.9% NaCl [Dextrose 5%-Normal Saline] 1,000 ml IV ASDIRECTED 08/30/19 09:00 Metoprolol Succinate [Toprol XL] 25 mg PO DAILY - Plan Plan:: Assessment/ Plan: #1. Diverticulitis. A CT of the abdomen was done after a KUB. The report of the CT showed sigmoid diverticulitis with small free fluid throughout without discrete abscess. Stable presently. Medically stable #2. Hypertension: She does have a history of hypertension. Will start Lisinopril and continue with Metoprolol. Home today.
[2019-08-31 07:50] VITALS: BP 161/64; PULSE 55
[2019-08-31] MEDS: Lisinopril 20 MG Tab PO SCH (08:21)
[2019-08-31] MEDS: amLODIPine 5 MG Tab PO SCH (08:22)
[2019-08-31] MEDS: Citalopram 20 MG Tab PO SCH (08:22)
[2019-08-31] MEDS: Aspirin 81 MG Tab.EC PO SCH (08:24)
[2019-08-31] MEDS: Metoprolol Succinate 25 MG Tab.ER PO SCH (08:24)
[2019-08-31] MEDS ORDERED: Lisinopril 10 MG Tab PO SCH (09:00)
[2019-08-31] MEDS ORDERED: Furosemide 20 MG Tab PO ONE (10:15)
--- NOTE | 2019-09-01 11:19 | DISCH ---
FINAL DIAGNOSIS: 1. Acute sigmoid colon diverticulitis. 2. History of atrial fibrillation. 3. History of hypertension. OPERATIVE PROCEDURES: None. SUMMARY: This is a 74-year-old presenting to Dr. Wander Maddox's office on 08/27/2019 with a picture of acute diverticulitis. CT scan was obtained which showed gallbladder findings consistent with diverticulitis in the sigmoid colon. There was some free fluid but no well- defined abscess. Through the course of the hospitalization, she maintained a normal white count and has not been febrile. She was fairly tender on admission in the left lower quadrant IV antibiotics consisting of meropenem and Azactam abated, and on date of discharge, today, the patient has no significant tenderness present. She is eating and moving her bowels satisfactorily. 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 b.i.d. x7 days, and she will be instructed to follow up with Dr. Maddox's office on , 09/04/2019. She was instructed to call or present to either emergency room or Dr. Maddox or contact myself should she develop fever or increasing abdominal pain, otherwise should continue on her present home medications.
--- NOTE | 2019-09-01 13:47 | PN ---
DATE OF SERVICE: 08/30/2019 The patient has been afebrile with stable vital signs. White count is 4.1, little bit low, but otherwise normal. Clinically, she looks quite good. Examination this morning shows very mild persistent tenderness in the left lower quadrant. Plan will be to continue the IV antibiotics for probably 1 more day. If she continues to have clinical improvement, we will discharge her home tomorrow on a course of oral antibiotics. Vince Fairbanks MD /[id number]
== END 2019-08-31 12:32 | disposition home or self-care (01) | DRG 392 ==
LOC: JP.MS 17:57 → JP.2SS 08-28 09:38
PROVIDERS: ADMIT Internal Medicine; ATTEND Internal Medicine
DX: K57.32 Diverticulitis of large intestine without perforation or abscess without bleeding (principal); I48.91 Unspecified atrial fibrillation; G47.30 Sleep apnea, unspecified; K59.09 Other constipation; F32.9 Major depressive disorder, single episode, unspecified; E66.9 Obesity, unspecified; I10 Essential (primary) hypertension; Z79.82 Long term (current) use of aspirin; Z79.899 Other long term (current) drug therapy; Z68.32 Body mass index [BMI] 32.0-32.9, adult
CPT/HCPCS: 36415; 80048; 80053; 81001; 83735; 84100; 85025; 85027; A9270-GY; C9113; J2185; J3490; J7050

== ENCOUNTER 2022-03-23 08:50 | Day surgery (SDC) | payer MEDICARE, BC ==
[2022-03-23] MEDS ORDERED: Propofol 200 MG/20 ML SDV ONE (09:27)
[2022-03-23] MEDS ORDERED: fentaNYL 100 MCG/2 ML SDV ONE (09:27)
[2022-03-23] MEDS ORDERED: Sodium Chloride 0.9% 1,000 ML IV SCH (09:30)
[2022-03-23 12:01] VITALS: BP 147/59; PULSE 58
== END 2022-03-23 12:15 | disposition home or self-care (01) ==
LOC: JP.SDS 08:50
PROVIDERS: ATTEND Internal Medicine
DX: K92.2 Gastrointestinal hemorrhage, unspecified (principal); I10 Essential (primary) hypertension; E78.5 Hyperlipidemia, unspecified; I48.91 Unspecified atrial fibrillation; F32.A Depression, unspecified; Z79.899 Other long term (current) drug therapy
CPT/HCPCS: 45378; J2704; J3010; J7030